=== PATIENT | male | born 1935 | race Caucasian/White ===

== ENCOUNTER 2016-11-25 11:03 | Emergency (ER) | payer MEDICARE ==
--- NOTE | 2016-12-07 08:25 | ER ---
ADMIT: 11/25/2016 RM/LOC: ER [facility] MR#: [id number] [address] [id number] NERIS GONZALEZ Swathi [address] [place] [address] Emergency Room Report SEX: M AGE: 81 : 1935 DATE: 11/25/2016 ADDENDUM: The patient comes to the ER because he tripped on a dog toy and fell. He has pain in the medial aspect of his right knee. 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 On physical exam, there is no abrasions or swelling noted. We did an x-ray that was negative for fracture. He was able to ambulate here in the ER. He refused any pain medicine. We will have him ice and elevate at home, take Tylenol and Motrin at home, and follow up with his primary as needed. Please see my T-sheet. SHANEL Robles / Jose Buckley MD / ailynl JOB #: [id number] CC: Jose Buckley MD, Attending Physician Dinesh Peck MD, Family Physician
== END 2016-11-25 13:40 | disposition home or self-care (01) ==
LOC: ER 11:03
DX: S86.811A Strain of other muscle(s) and tendon(s) at lower leg level, right leg, initial encounter (principal); I10 Essential (primary) hypertension; E11.9 Type 2 diabetes mellitus without complications; G20 Parkinson's disease; Z88.0 Allergy status to penicillin; Z91.013 Allergy to seafood; Z79.84 Long term (current) use of oral hypoglycemic drugs; Z79.82 Long term (current) use of aspirin; Z79.899 Other long term (current) drug therapy; W01.0XXA Fall on same level from slipping, tripping and stumbling without subsequent striking against object, initial encounter; Y92.009 Unspecified place in unspecified non-institutional (private) residence as the place of occurrence of the external cause